=== PATIENT | male | born 1975 | race Caucasian/White ===

== ENCOUNTER 2022-08-19 01:11 | Emergency (ER) | payer OTHER, SELFPAY ==
[2022-08-19 01:26] VITALS: BP 103/62; PULSE 60; RESP 18; O2SAT 100; BMI 29.5
--- NOTE | 2022-08-19 01:30 | PC.NURSE ---
called to the [facility] per registration pt stating he feels like he is going to pass out while walking out to [facility], registration stated I think he just passed out, pt was sitting in a chair, cool to the touch, awake and alert stating he didn't feel well pt was placed in a WC and brought to room, after laying on the stretcher, pt stated he was feeling better,
--- NOTE | 2022-08-19 03:06 | ED_ITS ---
HPI - Epistaxis General Chief complaint: Nasal Problem Stated complaint: nose bleed that wont stop 20 plus min Time Seen by Provider: 08/19/22 01:19 Source: patient Mode of arrival: Wheelchair History of Present Illness HPI Narrative: 47-year-old male nonsmoker with noncontributory medical history presents with his in the chief complaint of a nosebleed that started after coughing earlier today. He denies any recent trauma or injury but states he has been using Flonase which is not new for him. He bled initially out of the right nostril but states it rapidly filled both nostrils and went down the back of his throat briefly. It had stopped prior to his coming in. He is not dizzy nor weak or lightheaded. He denies any chest pain or shortness of breath. He denies nausea, vomiting or diarrhea Review of Systems Review of Systems Narrative: GENERAL: Denies chills, fatigue, malaise, fever, sweats. HEENT: See HPI RESPIRATORY: Denies dyspnea, cough, wheezing, hemoptysis, sputum. CARDIOVASCULAR: Denies chest pain, palpitations, orthopnea, edema, GASTROINTESTINAL: Denies nausea, vomiting, abdominal pain, diarrhea, consti pation, melena. : Denies dysuria, frequency, incontinence, hematuria, urinary retention. MUSCULOSKELETAL: denies weakness, joint pain, or bony pain SKIN: Denies rash, skin lesions, or other NEUROLOGIC: Denies weakness, headache, numbness, change in speech, confusion, seizures, incoordination. PSYCHIATRIC: No concerning psychosocial issues. 12 point review of systems is negative except for those stated above Exam Narrative Exam Narrative: GENERAL: [47] year old patient appears stated age. Well-developed patient, in mild distress. HEAD: Atraumatic. Normocephalic. EYES: Pupils equal round and reactive. Extraocular motions intact. No scleral icterus. No injection or drainage. ENT: Dried blood on sure and in bilateral nares, no active bleeding, no obvious source of bleeding.. Throat without erythema, tonsillar hypertrophy or exudate. Airway patent. NECK: Trachea midline. Non tender CARDIOVASCULAR: Regular rate and rhythm without murmurs, gallops, or rubs. RESPIRATORY: Clear to auscultation. Breath sounds equal bilaterally. No wheezes, rales, or rhonchi. GASTROINTESTINAL: Abdomen soft, non-tender, nondistended. EXTREMITIES: No edema or joint tenderness. BACK: Nontender without deformity or crepitance. No flank tenderness. NEURO: AOx3. SKIN: No rash or erythema of visible areas Initial Vital Signs Initial Vital Signs: Vital Signs Pulse Rate 60 08/19/22 01:26 Respiratory Rate 18 08/19/22 01:26 Blood Pressure 103/62 08/19/22 01:26 Pulse Oximetry 100 08/19/22 01:26 Oxygen Delivery Method 08/19/22 01:26 Course Orders Ordered: Discontinued Medications Oxymetazoline HCl (Oxymetazoline Nasal [place] 15 Ml) 2 sprays NASAL NOW ONE Stop: 08/19/22 03:03 Last Admin: 08/19/22 03:30 Dose: 2 sprays Documented By: TERRY Reevaluation(s) Reevaluation #1: Initial treatment included cotton balls in bilateral nares soaked in Afrin, after 15 minutes he was re-evaluated and no bleeding was noted. We did to labs through the emergency department and 1 drop of blood came from his left naris onto his shirt. No evidence of ongoing bleeding otherwise. Swabs were replaced with Afrin for another 15 minutes at which point he was re-evaluated and no ongoing bleeding was noted. We did have a rather lengthy discussion regarding whether not to place rhino rockets and sure the opinion that it is a bit overkill for now and the risk of doing so would outweigh any benefit. He is given extensive return precautions and questions have been answered to his apparent satisfaction Vital Signs Vital signs: Vital Signs - 8 hr 08/19/22 01:26 Pulse Rate 60 Respiratory Rate 18 Blood Pressure 103/62 Pulse Oximetry 100 Oxygen Delivery Method Room Air Discharge Plan Departure Patient Disposition: Home Clinical Impression: Epistaxis Instructions: DI for Nosebleed Activity Restrictions/Additional Instructions: *You have been diagnosed with [ acute epistaxis ] *What to do: * do not blow your nose, stick your finger in her nose, or disturb nose for the next 24 hr. If you must sneeze please sneeze out your mouth like we talked about *Follow up with your primary care provider or ENT doctor in 2-3 days, call for an appointment. Let them know you were seen in the Emergency Department and that we ask that you be seen in follow up *Return to ER if you should have any new, worsening or concerning symptoms * if you are bleeding starts again at home please place a portion of a cotton ball in your nostril and squirt some of the Afrin you were given in your nose. Apply the nose clamp and uses a watch or o'clock to time yourself for 15 min. At the end 15 min recheck for bleeding, if you continue to bleed please repeat the process for another 15 min. If at the end of 30 min you still have bleeding you should return to the emergency department Referrals: Glenys Alex DO [Primary Care Provider] - Josue Avery MD [Physician] - Visit Report Forms: Patient Portal/API
[2022-08-19] MEDS: OXYMETAZOLINE NASAL SPRAY 15 ML 2 SPRAYS NASAL (03:30)
== END 2022-08-19 04:01 | disposition home or self-care (01) ==
PROVIDERS: Emergency Provider Emergency Medicine; PCP Family Medicine
DX: R04.0 Epistaxis (principal)
CPT/HCPCS: 30901; 99282; A9270